=== PATIENT | female | born 1960 | race Caucasian/White ===

== ENCOUNTER 2023-10-12 17:36 | Emergency (ER) | payer OTHER ==
[~2023-10-12] VITALS: Ht 162.6 cm; Wt 57.6 kg
[2023-10-12 18:05] VITALS: BP 120/69; TEMP 98; O2SAT 98
[2023-10-12] MEDS ORDERED: AMOX-430 PO (18:28)
== END 2023-10-12 18:39 | disposition home or self-care (01) ==
LOC: ER 17:39
DX: H66.91 Otitis media, unspecified, right ear (principal)

== ENCOUNTER 2024-06-28 21:10 | Emergency (ER) | payer OTHER ==
[~2024-06-28] VITALS: Ht 160 cm; Wt 61.2 kg
[~2024-06-28 21:10] MED LIST: AMOX-430 PO
[2024-06-28 22:09] VITALS: BP 140/86; TEMP 98.5; O2SAT 98
== END 2024-06-29 01:01 | disposition left against medical advice (07) ==
LOC: ER 21:17
DX: M79.672 Pain in left foot (principal); R05.9 Cough, unspecified; F17.200 Nicotine dependence, unspecified, uncomplicated
CPT/HCPCS: 71046; 73630-TC